=== PATIENT | female | born 1980 | race Caucasian/White ===

== ENCOUNTER 2022-07-18 01:53 | Day surgery (SDC) | payer OTHER, SELFPAY ==
[2022-07-10 11:39] VITALS: BMI 33.0
[2022-07-18 07:21] VITALS: BP 121/81; PULSE 66; RESP 20; TEMP 36.6; O2SAT 100
[2022-07-18 07:32] VITALS: BMI 30.4
[2022-07-18] MEDS: LACTATED RINGERS 1,000 ML 150 ML IV CONT (07:44)
[2022-07-18 07:45] LABS: Glucose Point of Care 91 mg/dl (65-105)
--- NOTE | 2022-07-18 08:06 | P.PNAN_ITS ---
Anes - Initial Pre Proc Eval Procedure: Operation Date: 07/18/22 09:00 Proposed Procedures p Esophagogastroduodenoscopy & Colonoscopy - Edin Whyte MD Date/Time: 07/18/22 08:06 Surgeon: Edin Whyte MD Pre Op Diagnosis: anemia Patient Data Age: 42 Gender: F Height: 1.57 m Weight: 75.5 kg Last Vital Signs Temp 36.6 C 07/18/22 07:21 Pulse 66 07/18/22 07:21 Resp 20 07/18/22 07:21 BP 121/81 07/18/22 07:21 Pulse Ox 100 07/18/22 07:21 O2 Del Method Room Air 07/18/22 07:21 Allergies Allergy/AdvReac Type Severity Reaction Status Date / Time No Known Allergies Allergy Verified 07/18/22 07:19 Home Medications Medication Instructions Recorded Confirmed Type aspirin 81 mg tablet,delayed 81 mg PO DAILY 07/10/22 07/18/22 History release (Adult Low Dose Aspirin) atorvastatin 10 mg tablet 10 mg PO HS 07/10/22 07/18/22 History citalopram 20 mg tablet 20 mg PO DAILY 07/10/22 07/18/22 History ferrous gluconate 324 mg (37.5 mg 324 mg PO BID 07/10/22 07/18/22 History iron) tablet folic acid 1 mg tablet 1 mg PO DAILY 07/10/22 07/18/22 History glipizide 5 mg tablet 2.5 mg PO DAILY 07/10/22 07/18/22 History lisinopril 2.5 mg tablet 2.5 mg PO DAILY 07/10/22 07/18/22 History metformin 1,000 mg tablet 1,000 mg PO DAILY 07/10/22 07/18/22 History risperidone 1 mg tablet 1 mg PO HS 07/10/22 07/18/22 History sennosides 8.6 mg tablet (senna) 8.6 mg PO BID PRN Constipation 07/10/22 07/18/22 History Laboratory Tests 07/18/22 07:38 POC Capillary Glucose 91 mg/dl mg/dl (65-105) Patient hx anesthesia problems: none Family hx anesthesia problems: none Results Review: All pre-operative results and documents have been reviewed as part of the pre- operative evaluation. [facility] Past Medical History Medical History (Updated 07/18/22 @ 08:08 by Domenico Hill MD) Diabetes HTN (hypertension) Hyperlipidemia Hypothyroidism Anes - Eval Final PreProcedure Day of Procedure 07/18/22 08:06 Patient weight: obese Heart: regular rate and rhythm Lungs: clear to auscultation and normal air movement Airway: Mallampati scale class II Neurological: alert and oriented Last oral intake: >/= 8 hours ASA classification: III Emergent: no Anesthetic plan: proceed Anesthesia type and monitoring: general GIVS Results Review: All pre-operative results and documents have been reviewed as part of the pre- operative evaluation. Informed Consent: The patient's anesthetic plan and its attendant risks and benefits were discussed with the patient/family/POA. Questions were solicited and answers provided to the satisfaction of the patient/family/POA.
--- NOTE | 2022-07-18 08:22 | PM.HPGS ---
History of Present Illness History of Present Illness Consent: Risks, benefits, and alternatives have been discussed and questions answered. Patient agrees to proceed with procedure. Chief complaint: anemia Narrative: Susan Muñoz is a 42 year old female with [place], hb ~ 8, no overt gib, she has heavy periods. Review of Systems Constitutional: Constitutional: Denies headache(s) and Denies weakness Eyes: Eyes: Denies blurry vision ENT: Reports Normal hearing present, Denies headache(s) and Denies neck pain Cardiovascular: Cardiovascular: Denies chest pain and Denies dyspnea Respiratory: Respiratory: Denies dyspnea Gastrointestinal: Gastrointestinal: Reports no additional gastrointestinal complaints Genitourinary: Genitourinary: Denies dysuria Musculoskeletal: Musculoskeletal: Denies neck pain Integumentary/Breasts: Skin/Breast: Denies dry skin Neurologic: Reports Normal hearing present, Denies headache(s) and Denies weakness Psychiatric: Psychiatric: Denies anxiety Endocrine: Endocrine: Denies change in body appearance Hematologic/Lymphatic: Hematologic/Lymphatic: Denies easy bleeding Allergic/Immunologic: Allergic/Immunologic: Denies urticaria PMFSH Past Medical History Medical History (Updated 07/18/22 @ 08:24 by Edin Whyte MD) Anemia Diabetes HTN (hypertension) Hyperlipidemia Hypothyroidism Meds Home Medications and Allergies Home Medications Medication Instructions Recorded Confirmed Type aspirin 81 mg tablet,delayed 81 mg PO DAILY 07/10/22 07/18/22 History release (Adult Low Dose Aspirin) atorvastatin 10 mg tablet 10 mg PO HS 07/10/22 07/18/22 History citalopram 20 mg tablet 20 mg PO DAILY 07/10/22 07/18/22 History ferrous gluconate 324 mg (37.5 mg 324 mg PO BID 07/10/22 07/18/22 History iron) tablet folic acid 1 mg tablet 1 mg PO DAILY 07/10/22 07/18/22 History glipizide 5 mg tablet 2.5 mg PO DAILY 07/10/22 07/18/22 History lisinopril 2.5 mg tablet 2.5 mg PO DAILY 07/10/22 07/18/22 History metformin 1,000 mg tablet 1,000 mg PO DAILY 07/10/22 07/18/22 History risperidone 1 mg tablet 1 mg PO HS 07/10/22 07/18/22 History sennosides 8.6 mg tablet (senna) 8.6 mg PO BID PRN Constipation 07/10/22 07/18/22 History Allergies Allergy/AdvReac Type Severity Reaction Status Date / Time No Known Allergies Allergy Verified 07/18/22 07:19 Vital Signs Vital Signs - 24 hr 07/18/22 07:21 Temperature 97.8 F Pulse Rate 66 Respiratory Rate 20 Blood Pressure 121/81 Pulse Oximetry 100 Oxygen Delivery Room Air Exam Const: General: comfortable and no acute distress HENMT: Face/Nose/Sinus: Normal nares present Eyes: General: appearance normal, both eyes and all related structures Neck: Neck: no JVD Resp: Auscultation: clear to auscultation bilaterally Cardio: Rate: regular rate Rhythm: regular rhythm GI: Inspection: non-distended GI Palp: Yes Soft to palpation Skin: General skin exam: normal color Neuro: General: gait normal Speech: normal speech Extrem: General: normal to inspection Psych: Mental Status: mental status grossly normal Assessment and Plan Assessment and plan (1) Anemia: Code(s): D64.9 - Anemia, unspecified Status: Acute Assessment and Plan: egd and colonoscopy to assess if gi blood loss
--- NOTE | 2022-07-18 08:46 | SUR.OPER ---
EGD: [id number] COLON: [id number]
[2022-07-18 08:51] VITALS: BP 101/57; PULSE 65; RESP 17; O2SAT 98
[2022-07-18 08:58] VITALS: BP 101/57; PULSE 61; RESP 15; O2SAT 98
[2022-07-18 09:08] VITALS: BP 103/67; PULSE 60; RESP 16; O2SAT 98
== END 2022-07-18 09:19 | disposition home or self-care (01) ==
PROVIDERS: Visit Provider Internal Medicine Gastroenterology
PROC: 0DJ08ZZ Inspection of Upper Intestinal Tract, Via Natural or Artificial Opening Endoscopic (ICD-10-PCS; CPT 43235; principal; 2022-07-18 09:00)
DX: D50.9 Iron deficiency anemia, unspecified (principal); K29.80 Duodenitis without bleeding; K29.50 Unspecified chronic gastritis without bleeding; K31.7 Polyp of stomach and duodenum; K64.8 Other hemorrhoids; E11.9 Type 2 diabetes mellitus without complications; I10 Essential (primary) hypertension; E78.5 Hyperlipidemia, unspecified; E03.9 Hypothyroidism, unspecified; E66.9 Obesity, unspecified; Z68.30 Body mass index [BMI] 30.0-30.9, adult; Z79.84 Long term (current) use of oral hypoglycemic drugs; Z79.82 Long term (current) use of aspirin
CPT/HCPCS: 45378; 43239; 43251; 82948; 88305; J2704; J7120